=== PATIENT | male | born 1960 | race Caucasian/White ===

== ENCOUNTER 2022-06-12 11:39 | Emergency (ER) | payer MEDICAID, OTHER ==
[~2022-06-12] VITALS: Ht 175.3 cm; Wt 80.3 kg
[2022-06-12 12:34] LABS: Basophils # (auto) 0 10 ^3/uL (0-0.2); Basophils % (auto) 0.4 % (0.0-2.0); Eosinophils # (auto) 0.2 10 ^3/uL (0-0.8); Eosinophils % (auto) 2.4 % (0.0-7.0); Hematocrit 46.6 % (41.0-53.0); Hemoglobin 16.1 g/dL (13.5-17.5); Lymphocytes # (auto) 1.9 10 ^3/uL (0.4-5.4); Lymphocytes % (auto) 20.1 % (10.0-50.0); Mean Corpuscular Hemoglobin 31.8 pg (28.0-32.0); Mean Corpuscular Hgb Conc. 34.4 g/dL (32.0-36.0); Mean Corpuscular Volume 92.5 fL (80.0-100.0); Monocytes # (auto) 0.6 10 ^3/uL (0-1.3); Monocytes % (auto) 6.5 % (0.0-12.0); Neutrophils # (auto) 6.7 10 ^3/uL (1.6-8.6); Neutrophils % (auto) 70.6 % (37.0-80.0); Nucleated Red Blood Cells % 0.1 %; Red Blood Cells 5.04 10^6/uL (4.5-5.90); White Blood Cell 9.5 10^3/uL (4.4-10.8)
[2022-06-12 12:51] LABS: BUN/Creatinine Ratio 11.8; Calcium 9.4 mg/dL (8.5-10.1); Magnesium 2.1 mg/dL (1.6-2.6); Potassium 4.8 mmol/L (3.5-5.1)
[2022-06-12 12:54] LABS: Bilirubin, Total 0.4 mg/dL (0.2-1.0); Total Protein 6.9 g/dL (6.4-8.2)
[2022-06-12] MEDS ORDERED: HYDROcodone-ACET 5/325MG TAB PO ONE (13:30)
[2022-06-12] MEDS ORDERED: HYDR1TAB97 PO (15:41)
[2022-06-12 16:07] VITALS: BP 116/68
== END 2022-06-12 16:08 | disposition home or self-care (01) ==
LOC: ER 11:39
DX: S22.31XA Fracture of one rib, right side, initial encounter for closed fracture (principal); Z88.5 Allergy status to narcotic agent; W11.XXXA Fall on and from ladder, initial encounter; Y93.89 Activity, other specified; Y92.89 Other specified places as the place of occurrence of the external cause; Y99.8 Other external cause status
CPT/HCPCS: 36415; 71101; 71260; 74177; 80053; 83735; 84484; 85025; 93005; 99285; Q9967

== ENCOUNTER 2023-03-04 22:08 | Emergency (ER) | payer MEDICAID ==
[~2023-03-04] VITALS: Ht 175.3 cm; Wt 81.8 kg
[~2023-03-04 22:08] MED LIST: HYDR1TAB97 PO
[2023-03-04] MEDS ORDERED: LIDOCAINE 2% JELLY 11ml (GLYDO) ONE (22:22)
[2023-03-04] MEDS ORDERED: LIDOCAINE 2% JELLY 11ml (GLYDO) UR ONE (22:45)
[2023-03-05 00:19] LABS: Urine Bacteria NONE SEEN /hpf (None Seen); Urine Blood Negative /uL (Negative); Urine Clarity Clear (Clear); Urine Color Colorless (Yellow); Urine Protein, UAD Negative (Negative); Urine Urobilinogen Normal (Negative); Urine WBC 1 /hpf (0 - 3)
[2023-03-05 06:30] VITALS: BP 129/73; PULSE 91; RESP 20; TEMP 98.2; O2SAT 97
[2023-03-05] MEDS ORDERED: TAMS-35 PO (06:39)
== END 2023-03-05 07:02 | disposition home or self-care (01) ==
LOC: ER 22:15
DX: R33.9 Retention of urine, unspecified (principal); K59.00 Constipation, unspecified; Z90.89 Acquired absence of other organs; Z79.899 Other long term (current) drug therapy; Z88.5 Allergy status to narcotic agent
CPT/HCPCS: 51702; 74176; 81001

== ENCOUNTER → 2023-03-14 | Outpatient (CLI) | payer MEDICAID ==
[~2023-03-14] MED LIST changes: +TAMS-35 PO
[2023-03-14 14:29] LABS: Chloride 102 mmol/L (98-107); Potassium 4.6 mmol/L (3.5-5.1); Sodium 135 mmol/L (136-145)
[2023-03-14 14:30] LABS: Anion Gap 3 (5-15); Calcium 9.7 mg/dL (8.5-10.1); Carbon Dioxide 30 mmol/L (20-30)
[2023-03-14 14:35] LABS: Blood Urea Nitrogen 10 mg/dL (9-23); Glucose 85 mg/dL (74-106)
== END | disposition home or self-care (01) ==
LOC: LAB 13:04
PROVIDERS: ATTEND Urology
DX: R33.9 Retention of urine, unspecified (principal)
CPT/HCPCS: 36415; 80048; 84153

== ENCOUNTER → 2023-03-15 | Outpatient (CLI) | payer MEDICAID | END | disposition home or self-care (01) | LOC: Rad HDHVI 08:03 | PROVIDERS: ATTEND Internal Medicine Cardiovascular Disease | DX: R07.9 Chest pain, unspecified (principal); R06.02 Shortness of breath | CPT/HCPCS: 93306 ==

== ENCOUNTER → 2023-04-01 | Outpatient (CLI) | payer MEDICAID ==
[~2023-04-01] VITALS: Ht 175.3 cm; Wt 78.5 kg
[~2023-04-01] MED LIST changes: +ADENOSINE 66 MG in GIVE UN-DILUTED 0 ML IV ONE; +ADENOSINE 90 MG/30 ML INJ IV ONE; +ATOR20TA PO; +OXY5T PO
== END | disposition home or self-care (01) ==
LOC: Rad HDHVI 08:08
PROVIDERS: ATTEND Internal Medicine Cardiovascular Disease
DX: R07.9 Chest pain, unspecified (principal); R06.09 Other forms of dyspnea; E78.2 Mixed hyperlipidemia; Z82.49 Family history of ischemic heart disease and other diseases of the circulatory system
CPT/HCPCS: 78452; 93005; 96374; 96375; A9500; J0153

== ENCOUNTER 2023-04-22 14:26 | Emergency (ER) | payer MEDICAID ==
[~2023-04-22] VITALS: Ht 175.3 cm; Wt 82.0 kg
[~2023-04-22 14:26] MED LIST changes: -ADENOSINE 66 MG in GIVE UN-DILUTED 0 ML IV ONE; -ADENOSINE 90 MG/30 ML INJ IV ONE; -ATOR20TA PO; -OXY5T PO
[2023-04-22 15:17] LABS: Basophils # (auto) 0.1 10 ^3/uL (0-0.2); Basophils % (auto) 0.8 % (0.0-2.0); Eosinophils # (auto) 0.2 10 ^3/uL (0-0.8); Eosinophils % (auto) 2.4 % (0.0-7.0); Hemoglobin 15.9 g/dL (13.5-17.5); Lymphocytes # (auto) 2.2 10 ^3/uL (0.4-5.4); Lymphocytes % (auto) 30.9 % (10.0-50.0); Mean Corpuscular Hemoglobin 31.1 pg (28.0-32.0); Mean Corpuscular Volume 91.7 fL (80.0-100.0); Monocytes # (auto) 0.5 10 ^3/uL (0-1.3); Monocytes % (auto) 7.2 % (0.0-12.0); Neutrophils # (auto) 4.1 10 ^3/uL (1.6-8.6); Neutrophils % (auto) 58.7 % (37.0-80.0); Nucleated Red Blood Cells % 0.1 %; Red Blood Cells 5.12 10^6/uL (4.5-5.90); Red Cell Distribution Width 12.7 % (11.8-14.3)
[2023-04-22 15:39] LABS: Alanine Aminotransferase 74 U/L (7-40); Albumin 4.7 g/dL (3.2-4.8); Alkaline Phosphatase 56 U/L (46-116); Anion Gap 3 (5-15); Aspartate Aminotransferase 32 U/L (13-40); BUN/Creatinine Ratio 8.5 (10.0-20.0); Bilirubin, Total 0.5 mg/dL (0.2-1.0); Blood Urea Nitrogen 10 mg/dL (9-23); Calcium 9.6 mg/dL (8.7-10.4); Carbon Dioxide 30 mmol/L (20-30); Chloride 107 mmol/L (98-107); Glucose 94 mg/dL (74-106); Potassium 4.5 mmol/L (3.5-5.1); Sodium 140 mmol/L (136-145); Total Protein 7.2 g/dL (5.7-8.2)
[2023-04-22 16:18] VITALS: BP 126/86; PULSE 82; RESP 16; TEMP 97.7; O2SAT 98
[2023-04-23] MEDS ORDERED: ATOR20TA PO (15:48)
[2023-04-23] MEDS ORDERED: OXY5T PO (15:48)
== END 2023-04-22 16:21 | disposition home or self-care (01) ==
LOC: ER 14:26
DX: R79.1 Abnormal coagulation profile (principal); Z90.89 Acquired absence of other organs; Z79.899 Other long term (current) drug therapy; Z88.5 Allergy status to narcotic agent
CPT/HCPCS: 36415; 80053; 85025

== ENCOUNTER 2023-04-25 06:40 | Day surgery (SDC) | payer MEDICAID ==
[2023-04-23 13:12] LABS: Urine Bacteria NONE SEEN /hpf (None Seen); Urine Blood Negative /uL (Negative); Urine Clarity Clear (Clear); Urine Color Yellow (Yellow); Urine Mucus FEW (None Seen); Urine Protein, UAD Negative (Negative); Urine Specific Gravity 1.019 (1.001-1.035); Urine Urobilinogen Normal (Negative); Urine WBC 5 /hpf (0 - 3); Urine pH 6.5 (5.0-8.0)
[2023-04-23 13:47] LABS: INR 0.98 (0.9-1.15); Partial Thromboplastin Time 27.7 SEC (24.5-34.5); Prothrombin Time 10.3 sec (9.3-11.8)
[2023-04-23 13:48] LABS: Alanine Aminotransferase 76 U/L (7-40); Albumin 4.7 g/dL (3.2-4.8); Alkaline Phosphatase 57 U/L (46-116); Anion Gap 8 (5-15); Aspartate Aminotransferase 36 U/L (13-40); Basophils # (auto) 0 10 ^3/uL (0-0.2); Basophils % (auto) 0.4 % (0.0-2.0); Bilirubin, Total 0.6 mg/dL (0.2-1.0); Blood Urea Nitrogen 8 mg/dL (9-23); Calcium 9.9 mg/dL (8.5-10.1); Carbon Dioxide 28 mmol/L (20-30); Chloride 104 mmol/L (98-107); Eosinophils # (auto) 0.2 10 ^3/uL (0-0.8); Glucose 93 mg/dL (74-106); Hemoglobin 16.2 g/dL (13.5-17.5); Lymphocytes % (auto) 33.6 % (10.0-50.0); Mean Corpuscular Hemoglobin 31.5 pg (28.0-32.0); Mean Corpuscular Hgb Conc. 34.4 g/dL (32.0-36.0); Mean Corpuscular Volume 91.6 fL (80.0-100.0); Monocytes # (auto) 0.4 10 ^3/uL (0-1.3); Monocytes % (auto) 6.2 % (0.0-12.0); Neutrophils # (auto) 3.3 10 ^3/uL (1.6-8.6); Neutrophils % (auto) 56.8 % (37.0-80.0); Potassium 4.1 mmol/L (3.5-5.1); Red Blood Cells 5.13 10^6/uL (4.5-5.90); Red Cell Distribution Width 12.4 % (11.8-14.3); Sodium 140 mmol/L (136-145); Total Protein 7.3 g/dL (5.7-8.2); White Blood Cell 5.8 10^3/uL (4.4-10.8)
[~2023-04-25] VITALS: Ht 175.3 cm; Wt 81.6 kg
[~2023-04-25 06:40] MED LIST changes: +ATOR20TA PO; -HYDR1TAB97 PO; +OXY5T PO
[2023-04-25] MEDS ORDERED: ONDANSETRON HCL 4 MG/2 ML VIAL ONE (07:50)
[2023-04-25] MEDS ORDERED: PROPOFOL 10 MG/ML 20 ML IV ONE (07:50)
[2023-04-25] MEDS ORDERED: MIDAZOLAM HCL 2MG/2ML 2ml VIAL (1mg/ml) ONE (07:50)
[2023-04-25] MEDS ORDERED: fentaNYL CITRATE 100 MCG/2 ML VL ONE (07:50)
[2023-04-25] MEDS ORDERED: SODIUM CHLORIDE LOCK 10 ML ONE (07:50)
[2023-04-25] MEDS ORDERED: CIPROFLOXACIN 400MG/200ML 200 ML IV ONE (07:56)
[2023-04-25] MEDS ORDERED: MORPHINE SULFATE INJ 2 MG/ml SYRG IV PRN (08:30)
[2023-04-25] MEDS ORDERED: METOCLOPRAMIDE HCL 5MG/ml INJ 2ml VIAL IV PRN (08:30)
[2023-04-25] MEDS ORDERED: HYDROmorphone HCL 2 MG/ML VL/or syr IV PRN ×2 (08:30)
[2023-04-25 08:52] VITALS: PULSE 76; RESP 13; TEMP 98.1; O2SAT 97
[2023-04-25 09:45] VITALS: BP 109/69; PULSE 78; RESP 14; O2SAT 98
== END 2023-04-25 09:50 | disposition home or self-care (01) ==
LOC: SUR 06:40
PROVIDERS: ATTEND Urology
DX: N35.819 Other urethral stricture, male, unspecified site (principal); N40.1 Benign prostatic hyperplasia with lower urinary tract symptoms; R33.8 Other retention of urine; R39.15 Urgency of urination; R35.0 Frequency of micturition
CPT/HCPCS: 36415; 52281; 80053; 81001; 85025; 85610; 85730; 87086; J0744; J2250; J2405; J2704; J3010; J7030

== ENCOUNTER → 2023-05-21 | Outpatient (CLI) | payer MEDICAID ==
[~2023-05-21] MED LIST changes: +ATOR10TA PO; +CARV6.2551 PO; +GABA-1308 PO
[2023-05-21 14:25] VITALS: BP 104/66; PULSE 72; RESP 16; O2SAT 95
[2023-05-21 15:00] VITALS: BP 104/59; PULSE 70; RESP 16; O2SAT 95
== END | disposition home or self-care (01) ==
LOC: CHF HDHVI 14:06
PROVIDERS: ATTEND Internal Medicine Cardiovascular Disease
DX: Z01.818 Encounter for other preprocedural examination (principal); I47.10 Supraventricular tachycardia, unspecified
CPT/HCPCS: 93005; G0463

== ENCOUNTER 2023-09-03 11:45 | Inpatient (IN) | payer MEDICAID ==
[~2023-09-03] VITALS: Ht 175.3 cm; Wt 86.5 kg
[~2023-09-03 11:45] MED LIST changes: +ACET500T58 PO; -ATOR20TA PO; -OXY5T PO
[2023-09-03 13:19] LABS: Basophils # (auto) 0 10 ^3/uL (0-0.2); Basophils % (auto) 0.2 % (0.0-2.0); Eosinophils # (auto) 0.2 10 ^3/uL (0-0.8); Eosinophils % (auto) 2.1 % (0.0-7.0); Hematocrit 46.2 % (41.0-53.0); Hemoglobin 15.4 g/dL (13.5-17.5); Lymphocytes # (auto) 1.1 10 ^3/uL (0.4-5.4); Lymphocytes % (auto) 13.4 % (10.0-50.0); Mean Corpuscular Hemoglobin 30.9 pg (28.0-32.0); Mean Corpuscular Hgb Conc. 33.4 g/dL (32.0-36.0); Mean Corpuscular Volume 92.5 fL (80.0-100.0); Monocytes # (auto) 0.4 10 ^3/uL (0-1.3); Monocytes % (auto) 5.3 % (0.0-12.0); Neutrophils # (auto) 6.5 10 ^3/uL (1.6-8.6); Red Blood Cells 4.99 10^6/uL (4.5-5.90); Red Cell Distribution Width 13.2 % (11.8-14.3); White Blood Cell 8.2 10^3/uL (4.4-10.8)
[2023-09-03 13:38] LABS: Alanine Aminotransferase 64 U/L (7-40); Albumin 4.4 g/dL (3.2-4.8); Alkaline Phosphatase 57 U/L (46-116); Anion Gap 4 (5-15); Aspartate Aminotransferase 31 U/L (13-40); BUN/Creatinine Ratio 8.4 (10.0-20.0); Bilirubin, Total 0.5 mg/dL (0.2-1.0); Blood Urea Nitrogen 9 mg/dL (9-23); Carbon Dioxide 28 mmol/L (20-30); Chloride 106 mmol/L (98-107); Glucose 96 mg/dL (74-106); Potassium 4.6 mmol/L (3.5-5.1); Sodium 138 mmol/L (136-145); Total Protein 6.8 g/dL (5.7-8.2)
[2023-09-03] MEDS ORDERED: MORPHINE SULFATE INJ 2 MG/ml SYRG IV PRN (16:00)
[2023-09-03] MEDS ORDERED: NITROGLYCERIN 0.4 MG SL TAB SL PRN (16:00)
[2023-09-03] MEDS ORDERED: ACETAMINOPHEN 325 MG TAB PO PRN (16:00)
[2023-09-03] MEDS ORDERED: DOCUSATE SOD 100 MG CAP PO PRN (16:00)
[2023-09-03] MEDS ORDERED: ONDANSETRON HCL 4 MG/2 ML VIAL IV PRN (16:00)
[2023-09-03] MEDS ORDERED: CLOP75TA70 PO (16:25)
[2023-09-03] MEDS ORDERED: GAB100C PO (16:25)
[2023-09-03] MEDS: SODIUM CHLORIDE 0.9% 1,000 ML IV ONE (21:12)
[2023-09-03] MEDS: SODIUM CHLOR 0.9% PF (SALINE LOCK) 10ML VIAL/SYR IV SCH (22:20)
[2023-09-03 23:30] VITALS: PULSE 95; RESP 18; O2SAT 95
[2023-09-04] VITALS (9 sets, daily range): BP systolic 99–109; BP diastolic 47–69; PULSE 65–76; RESP 17–20; TEMP 97.4–98.3; O2SAT 95–99
[2023-09-04] MEDS: ATORVASTATIN 20 MG TAB PO SCH (00:36)
[2023-09-04] MEDS: CARVEDILOL 3.125 MG TAB PO SCH (00:37)
[2023-09-04] MEDS ORDERED: ASPI1TAB20 PO (00:38)
[2023-09-04 07:33] LABS: Basophils # (auto) 0 10 ^3/uL (0-0.2); Basophils % (auto) 0.2 % (0.0-2.0); Eosinophils # (auto) 0.2 10 ^3/uL (0-0.8); Eosinophils % (auto) 3.3 % (0.0-7.0); Hematocrit 43.5 % (41.0-53.0); Hemoglobin 14.9 g/dL (13.5-17.5); Lymphocytes # (auto) 1.9 10 ^3/uL (0.4-5.4); Lymphocytes % (auto) 29.6 % (10.0-50.0); Mean Corpuscular Hemoglobin 31.5 pg (28.0-32.0); Mean Corpuscular Hgb Conc. 34.4 g/dL (32.0-36.0); Mean Corpuscular Volume 91.5 fL (80.0-100.0); Monocytes # (auto) 0.5 10 ^3/uL (0-1.3); Monocytes % (auto) 7.5 % (0.0-12.0); Neutrophils # (auto) 3.8 10 ^3/uL (1.6-8.6); Neutrophils % (auto) 59.4 % (37.0-80.0); Red Blood Cells 4.75 10^6/uL (4.5-5.90); Red Cell Distribution Width 13.1 % (11.8-14.3); White Blood Cell 6.3 10^3/uL (4.4-10.8)
[2023-09-04 07:44] LABS: Alanine Aminotransferase 61 U/L (7-40); Albumin 4.1 g/dL (3.2-4.8); Alkaline Phosphatase 54 U/L (46-116); Anion Gap 5 (5-15); Aspartate Aminotransferase 30 U/L (13-40); BUN/Creatinine Ratio 7.8 (10.0-20.0); Blood Urea Nitrogen 8 mg/dL (9-23); Calcium 9.2 mg/dL (8.5-10.1); Carbon Dioxide 27 mmol/L (20-30); Chloride 108 mmol/L (98-107); Glucose 92 mg/dL (74-106); Sodium 140 mmol/L (136-145)
[2023-09-04 07:45] LABS: Total Protein 6.4 g/dL (5.7-8.2)
[2023-09-04 07:46] LABS: Bilirubin, Total 0.6 mg/dL (0.2-1.0)
[2023-09-04] MEDS: TAMSULOSIN HYDROCHLORIDE 0.4 MG CAP PO SCH (09:36)
[2023-09-04] MEDS: CLOPIDOGREL BISULFATE 75 MG TAB PO SCH (09:36)
[2023-09-04] MEDS: GABAPENTIN 100 MG CAP PO SCH (09:36)
[2023-09-04] MEDS: FLUDROCORTISONE ACETATE 0.1 MG TAB PO SCH (21:19)
[2023-09-04] MEDS: HYDROcodone-ACET 5/325MG TAB PO PRN (21:27)
[2023-09-05 01:00] VITALS: BP 100/53; PULSE 68; RESP 18; TEMP 98.3; O2SAT 95
[2023-09-05 05:00] VITALS: BP 103/53; PULSE 63; RESP 17; TEMP 98.1; O2SAT 94
[2023-09-05 08:00] VITALS: PULSE 61
[2023-09-05 08:17] VITALS: BP 107/55; PULSE 64; RESP 19; TEMP 97.3; O2SAT 98
[2023-09-05] MEDS ORDERED: FLU01T PO (11:10)
[2023-09-05 12:17] VITALS: BP 108/50; PULSE 66; RESP 18; TEMP 97.8; O2SAT 95
== END 2023-09-05 14:16 | disposition home or self-care (01) | DRG 422 ==
LOC: EDSEX 11:45 → ER 11:45 → EDBD 11:45 → TELE 16:24 → TELE-WESTW 22:53
PROVIDERS: ADMIT Nurse Practitioner Family; ATTEND Internal Medicine Geriatric Medicine
DX: E86.0 Dehydration (principal); I11.0 Hypertensive heart disease with heart failure; I50.22 Chronic systolic (congestive) heart failure; I95.9 Hypotension, unspecified; R55 Syncope and collapse; N40.0 Benign prostatic hyperplasia without lower urinary tract symptoms; Z79.52 Long term (current) use of systemic steroids; Z85.828 Personal history of other malignant neoplasm of skin; Z88.5 Allergy status to narcotic agent; Z88.8 Allergy status to other drugs, medicaments and biological substances; Z79.899 Other long term (current) drug therapy
CPT/HCPCS: 36415; 70450; 71045; 80053; 82962; 83605; 83880; 84484; 85025; 85379; 87040; 93005; 96360; G0378

== ENCOUNTER 2023-09-17 08:40 | Day surgery (SDC) | payer MEDICAID ==
[2023-09-12 12:08] LABS: INR 1.04 (0.9-1.15); Partial Thromboplastin Time 27.1 SEC (24.5-34.5)
[2023-09-12 12:11] LABS: Alanine Aminotransferase 57 U/L (7-40); Albumin 4.6 g/dL (3.2-4.8); Alkaline Phosphatase 57 U/L (46-116); Anion Gap 7 (5-15); Aspartate Aminotransferase 33 U/L (13-40); BUN/Creatinine Ratio 6.1 (10.0-20.0); Bilirubin, Total 0.7 mg/dL (0.2-1.0); Blood Urea Nitrogen 7 mg/dL (9-23); Calcium 9.9 mg/dL (8.5-10.1); Carbon Dioxide 27 mmol/L (20-30); Chloride 105 mmol/L (98-107); Glucose 93 mg/dL (74-106); Potassium 5.3 mmol/L (3.5-5.1); Sodium 139 mmol/L (136-145); Total Protein 7.2 g/dL (5.7-8.2)
[2023-09-12 12:12] LABS: Basophils # (auto) 0 10 ^3/uL (0-0.2); Basophils % (auto) 0.3 % (0.0-2.0); Eosinophils # (auto) 0.2 10 ^3/uL (0-0.8); Eosinophils % (auto) 3.4 % (0.0-7.0); Hematocrit 48.5 % (41.0-53.0); Hemoglobin 16.7 g/dL (13.5-17.5); Lymphocytes # (auto) 1.5 10 ^3/uL (0.4-5.4); Lymphocytes % (auto) 32.5 % (10.0-50.0); Mean Corpuscular Hemoglobin 31.5 pg (28.0-32.0); Mean Corpuscular Hgb Conc. 34.5 g/dL (32.0-36.0); Mean Corpuscular Volume 91.2 fL (80.0-100.0); Monocytes # (auto) 0.3 10 ^3/uL (0-1.3); Monocytes % (auto) 7.3 % (0.0-12.0); Neutrophils # (auto) 2.6 10 ^3/uL (1.6-8.6); Neutrophils % (auto) 56.5 % (37.0-80.0); Nucleated Red Blood Cells % 0.3 %; Red Blood Cells 5.32 10^6/uL (4.5-5.90); Red Cell Distribution Width 12.8 % (11.8-14.3); White Blood Cell 4.5 10^3/uL (4.4-10.8)
[2023-09-12 12:23] LABS: Urine Bacteria FEW /hpf (None Seen); Urine Blood TRACE /uL (Negative); Urine Clarity Clear (Clear); Urine Color Light-Yellow (Yellow); Urine Mucus FEW (None Seen); Urine Protein, UAD Negative (Negative); Urine Specific Gravity 1.009 (1.001-1.035); Urine Urobilinogen Normal (Negative); Urine WBC 54 /hpf (0 - 3); Urine pH 6.5 (5.0-9.0)
[~2023-09-17] VITALS: Ht 175.3 cm; Wt 80.7 kg
[~2023-09-17 08:40] MED LIST changes: -ACET500T58 PO; +ASPI1TAB20 PO; +CLOP75TA70 PO; +FLU01T PO; +GAB100C PO; -GABA-1308 PO
[2023-09-17] MEDS ORDERED: SODIUM CHLORIDE LOCK 10 ML ONE (10:49)
[2023-09-17] MEDS ORDERED: LIDOCAINE 1% INJ PF 5ML AMP ONE (10:49)
[2023-09-17] MEDS ORDERED: MEPERIDINE HCL (50 MG/ML) 1 ML VIAL ONE (10:49)
[2023-09-17] MEDS ORDERED: ONDANSETRON HCL 4 MG/2 ML VIAL ONE (10:49)
[2023-09-17] MEDS ORDERED: PROPOFOL 10 MG/ML 20 ML IV ONE (10:49)
[2023-09-17] MEDS ORDERED: MIDAZOLAM HCL 2MG/2ML 2ml VIAL (1mg/ml) ONE (10:49)
[2023-09-17] MEDS ORDERED: fentaNYL CITRATE 100 MCG/2 ML VL ONE (10:49)
[2023-09-17] MEDS ORDERED: LIDOCAINE HCL 2% TOP JELLY 5ML TOP ONE (10:50)
[2023-09-17] MEDS ORDERED: CIPROFLOXACIN 400MG/200ML 200 ML IV ONE (11:06)
[2023-09-17] MEDS ORDERED: METOCLOPRAMIDE HCL 5MG/ml INJ 2ml VIAL IV ONE (11:30)
[2023-09-17] MEDS ORDERED: HYDROmorphone HCL 2 MG/ML VL/or syr IV PRN ×2 (11:30)
[2023-09-17] MEDS ORDERED: MORPHINE SULFATE INJ 2 MG/ml SYRG IV PRN (11:30)
[2023-09-17 12:46] VITALS: TEMP 98.1; O2SAT 96
[2023-09-17] MEDS: KETOROLAC TROMETH 30 MG/ML 1ML VIAL IV ONE (13:43)
[2023-09-17] MEDS ORDERED: ACETAMINOPHEN IV 100 ML IV ONE (13:51)
[2023-09-17] MEDS: ACETAMINOPHEN IV 1000 MG/100ML (10MG/ML) IV ONE (13:55)
[2023-09-17 14:38] VITALS: BP 104/72; PULSE 74; RESP 13; O2SAT 95
== END 2023-09-17 14:49 | disposition home or self-care (01) ==
LOC: SUR 08:40
PROVIDERS: ATTEND Urology
DX: N40.1 Benign prostatic hyperplasia with lower urinary tract symptoms (principal); N21.0 Calculus in bladder; E78.5 Hyperlipidemia, unspecified; N40.0 Benign prostatic hyperplasia without lower urinary tract symptoms; G62.9 Polyneuropathy, unspecified; I95.9 Hypotension, unspecified; F32.A Depression, unspecified; F41.9 Anxiety disorder, unspecified; Z79.82 Long term (current) use of aspirin; Z79.01 Long term (current) use of anticoagulants; Z87.891 Personal history of nicotine dependence; Z82.49 Family history of ischemic heart disease and other diseases of the circulatory system; Z79.899 Other long term (current) drug therapy; Z98.890 Other specified postprocedural states
CPT/HCPCS: 36415; 52441; 52442; 80053; 81001; 82360; 85025; 85610; 85730; 87086; 88300; C1769; J0131; J0744; J1885; J2175; J2250; J2405; J2704; J3010; J7030; L8699

== ENCOUNTER 2024-02-06 20:39 | Inpatient (IN) | payer MEDICAID ==
[~2024-02-06] VITALS: Ht 175.3 cm; Wt 182.6 kg
[2024-02-06 21:51] VITALS: PULSE 69; RESP 18; O2SAT 97
[2024-02-07 00:04] LABS: Basophils # (auto) 0 10 ^3/uL (0-0.2); Eosinophils # (auto) 0 10 ^3/uL (0-0.8); Eosinophils % (auto) 0.3 % (0.0-7.0); Hematocrit 47.8 % (41.0-53.0); Hemoglobin 16.7 g/dL (13.5-17.5); Lymphocytes # (auto) 1.5 10 ^3/uL (0.4-5.4); Lymphocytes % (auto) 9.8 % (10.0-50.0); Mean Corpuscular Hemoglobin 31.5 pg (28.0-32.0); Mean Corpuscular Hgb Conc. 34.9 g/dL (32.0-36.0); Mean Corpuscular Volume 90.2 fL (80.0-100.0); Monocytes # (auto) 0.8 10 ^3/uL (0-1.3); Monocytes % (auto) 5.2 % (0.0-12.0); Neutrophils # (auto) 13.1 10 ^3/uL (1.6-8.6); Neutrophils % (auto) 84.7 % (37.0-80.0); Platelet Count (auto) 292 10^3/uL (140-450); Red Cell Distribution Width 13.3 % (11.8-14.3); White Blood Cell 15.5 10^3/uL (4.4-10.8)
[2024-02-07 00:11] LABS: Alanine Aminotransferase 55 U/L (7-40); Albumin 4.6 g/dL (3.2-4.8); Alkaline Phosphatase 64 U/L (46-116); Anion Gap 10 (5-15); Aspartate Aminotransferase 24 U/L (13-40); BUN/Creatinine Ratio 8.9 (10.0-20.0); Bilirubin, Total 0.7 mg/dL (0.2-1.0); Blood Urea Nitrogen 10 mg/dL (9-23); Carbon Dioxide 24 mmol/L (20-30); Chloride 104 mmol/L (98-107); Glucose 127 mg/dL (74-106); Lipase 45 U/L (12-53); Potassium 3.9 mmol/L (3.5-5.1); Sodium 138 mmol/L (136-145); Total Protein 7.3 g/dL (5.7-8.2)
[2024-02-07] MEDS: LIDOCAINE 2% JELLY 11ml (GLYDO) UR ONE (00:15)
[2024-02-07 00:27] LABS: Lactic Acid w/Reflex 3.2 mmol/L (0.4-2.0)
[2024-02-07] MEDS: IOHEXOL 300 MG/ML 100ML BOTTLE IJ ONE (00:44)
[2024-02-07 01:05] LABS: Urine Bacteria None Seen /hpf (None Seen)
[2024-02-07 01:13] LABS: Urine Blood Negative /uL (Negative); Urine Clarity Clear (Clear); Urine Color Light-Yellow (Yellow); Urine Protein, UAD Negative (Negative); Urine Specific Gravity 1.012 (1.001-1.035); Urine Urobilinogen Normal (Negative); Urine WBC 1 /hpf (0 - 3); Urine pH 6.5 (5.0-9.0)
[2024-02-07] MEDS: ONDANSETRON HCL 4 MG/2 ML VIAL IV ONE (03:07)
[2024-02-07] MEDS: MORPHINE SULFATE 4 MG/ML SYR/VIAL IV ONE (03:07)
[2024-02-07] MEDS: SODIUM CHLORIDE 0.9% 1,000 ML IV ONE (03:07)
[2024-02-07] MEDS ORDERED: NITROGLYCERIN 0.4 MG SL TAB SL PRN (11:30)
[2024-02-07] MEDS ORDERED: MORPHINE SULFATE INJ 2 MG/ml SYRG IV PRN (11:30)
[2024-02-07] MEDS ORDERED: ONDANSETRON HCL 4 MG/2 ML VIAL IV PRN (11:30)
[2024-02-07] MEDS ORDERED: HYDROcodone-ACET 5/325MG TAB PO PRN (11:30)
[2024-02-07 11:33] LABS: Basophils # (auto) 0 10 ^3/uL (0-0.2); Basophils % (auto) 0.1 % (0.0-2.0); Eosinophils # (auto) 0.1 10 ^3/uL (0-0.8); Eosinophils % (auto) 0.7 % (0.0-7.0); Hematocrit 42.2 % (41.0-53.0); Hemoglobin 14.8 g/dL (13.5-17.5); Lymphocytes % (auto) 10.7 % (10.0-50.0); Mean Corpuscular Hemoglobin 31.9 pg (28.0-32.0); Mean Corpuscular Hgb Conc. 35.1 g/dL (32.0-36.0); Mean Corpuscular Volume 90.7 fL (80.0-100.0); Monocytes # (auto) 0.7 10 ^3/uL (0-1.3); Neutrophils # (auto) 7.7 10 ^3/uL (1.6-8.6); Neutrophils % (auto) 81.5 % (37.0-80.0); Platelet Count (auto) 259 10^3/uL (140-450); Red Blood Cells 4.65 10^6/uL (4.5-5.90); Red Cell Distribution Width 13.4 % (11.8-14.3); White Blood Cell 9.4 10^3/uL (4.4-10.8)
[2024-02-07 11:48] LABS: Alanine Aminotransferase 43 U/L (7-40); Albumin 4.1 g/dL (3.2-4.8); Alkaline Phosphatase 63 U/L (46-116); Aspartate Aminotransferase 14 U/L (13-40); BUN/Creatinine Ratio 9.3 (10.0-20.0); Bilirubin, Total 0.8 mg/dL (0.2-1.0); Blood Urea Nitrogen 10 mg/dL (9-23); Calcium 9.4 mg/dL (8.7-10.4); Chloride 105 mmol/L (98-107); Glucose 109 mg/dL (74-106); Potassium 4.5 mmol/L (3.5-5.1); Sodium 137 mmol/L (136-145); Total Protein 6.3 g/dL (5.7-8.2)
[2024-02-07] MEDS: ENOXAPARIN SOD 40 MG/0.4 ML SYRINGE SC ONE (11:52)
[2024-02-07] MEDS: PANTOPRAZOLE 40 MG/10 ML VIAL INJ IV ONE (11:52)
[2024-02-07 11:57] LABS: Lactic Acid w/Reflex 2.2 mmol/L (0.4-2.0)
[2024-02-07 12:09] LABS: Anion Gap 6 (5-15); Carbon Dioxide 26 mmol/L (20-30)
[2024-02-07] MEDS: SODIUM CHLORIDE 0.9% 1,000 ML IV SCH (13:12)
[2024-02-07 14:47] LABS: COVID19 ANTIGEN SOFIA FIA NEGATIVE (NEGATIVE)
[2024-02-07 14:48] LABS: Rapid Influenza A Negative (Negative); Rapid Influenza B Negative (Negative)
[2024-02-07 17:00] VITALS: BP 105/66; PULSE 83; RESP 15; TEMP 98; O2SAT 94
[2024-02-07 20:00] VITALS: PULSE 80; PULSE 82; RESP 18; O2SAT 97
[2024-02-07 21:19] VITALS: BP 116/74; PULSE 91; RESP 18; TEMP 98.8; O2SAT 94
[2024-02-08 01:02] VITALS: BP 106/61; PULSE 90; RESP 18; TEMP 98.6; O2SAT 93
[2024-02-08 04:53] VITALS: BP 101/68; PULSE 78; RESP 19; TEMP 98.2; O2SAT 93
[2024-02-08 08:00] VITALS: PULSE 77
[2024-02-08 09:00] VITALS: BP 108/67; PULSE 72; RESP 20; TEMP 98.3; O2SAT 94
[2024-02-08] MEDS: ENOXAPARIN SOD 40 MG/0.4 ML SYRINGE SC SCH (10:16)
[2024-02-08] MEDS: PANTOPRAZOLE 40 MG/10 ML VIAL INJ IV SCH (10:16)
[2024-02-08 13:00] VITALS: BP 96/59; PULSE 67; RESP 18; TEMP 99; O2SAT 95
[2024-02-08 13:22] VITALS: BP 108/65
== END 2024-02-08 14:32 | disposition home or self-care (01) | DRG 501 ==
LOC: ER 20:39 → EDBD 20:39 → TELE 02-07 11:23 → TELE-WESTW 02-07 13:11
PROVIDERS: ADMIT Internal Medicine; ATTEND Emergency Medicine
DX: N40.1 Benign prostatic hyperplasia with lower urinary tract symptoms (principal); E87.20 Acidosis, unspecified; I50.22 Chronic systolic (congestive) heart failure; I11.0 Hypertensive heart disease with heart failure; R33.8 Other retention of urine; K59.09 Other constipation; N32.89 Other specified disorders of bladder; Z20.822 Contact with and (suspected) exposure to COVID-19; K76.9 Liver disease, unspecified; Z88.5 Allergy status to narcotic agent; Z91.09 Other allergy status, other than to drugs and biological substances; Z79.899 Other long term (current) drug therapy; Z79.82 Long term (current) use of aspirin; Z87.442 Personal history of urinary calculi; Z82.49 Family history of ischemic heart disease and other diseases of the circulatory system; Z83.49 Family history of other endocrine, nutritional and metabolic diseases
CPT/HCPCS: 36415; 74177; 80053; 81001; 83605; 83690; 83880; 84154; 84443; 85025; 87040; 87426; 87804; 93005; G0378; J2405; J2470

== ENCOUNTER → 2024-02-27 | Outpatient (CLI) | payer MEDICAID | END | disposition home or self-care (01) | LOC: Rad HDHVI 09:58 | PROVIDERS: ATTEND Internal Medicine Cardiovascular Disease | DX: Z01.818 Encounter for other preprocedural examination (principal); I07.1 Rheumatic tricuspid insufficiency | CPT/HCPCS: 93306 ==

== ENCOUNTER → 2024-03-04 | Outpatient (CLI) | payer MEDICAID ==
[~2024-03-04] VITALS: Ht 175.3 cm; Wt 80.7 kg
[~2024-03-04] MED LIST changes: +ADENOSINE 68 MG in GIVE UN-DILUTED 0 ML IV ONE; +ADENOSINE 90 MG/30 ML INJ IV ONE
== END | disposition home or self-care (01) ==
LOC: Rad HDHVI 10:08
PROVIDERS: ATTEND Internal Medicine Cardiovascular Disease
DX: E78.2 Mixed hyperlipidemia (principal); I11.0 Hypertensive heart disease with heart failure; I50.9 Heart failure, unspecified; Z79.899 Other long term (current) drug therapy
CPT/HCPCS: 78452; 93005; 96374; A9500; J0153; 96375

== ENCOUNTER 2024-04-02 06:23 | Day surgery (SDC) | payer MEDICAID ==
[2024-03-27 12:41] LABS: Urine Bacteria FEW /hpf (None Seen); Urine Blood Negative /uL (Negative); Urine Clarity Clear (Clear); Urine Color Light-Yellow (Yellow); Urine Mucus FEW (None Seen); Urine Protein, UAD TRACE (Negative); Urine Specific Gravity 1.017 (1.001-1.035); Urine Urobilinogen Normal (Negative); Urine WBC 52 /hpf (0 - 3); Urine pH 5.5 (5.0-9.0)
[2024-03-27 12:43] LABS: Basophils # (auto) 0 10 ^3/uL (0-0.2); Basophils % (auto) 0.2 % (0.0-2.0); Eosinophils # (auto) 0.2 10 ^3/uL (0-0.8); Eosinophils % (auto) 3.3 % (0.0-7.0); Hematocrit 46.5 % (41.0-53.0); Hemoglobin 16.1 g/dL (13.5-17.5); Lymphocytes # (auto) 1.6 10 ^3/uL (0.4-5.4); Lymphocytes % (auto) 25.7 % (10.0-50.0); Mean Corpuscular Hemoglobin 31.4 pg (28.0-32.0); Mean Corpuscular Hgb Conc. 34.7 g/dL (32.0-36.0); Mean Corpuscular Volume 90.5 fL (80.0-100.0); Monocytes # (auto) 0.5 10 ^3/uL (0-1.3); Monocytes % (auto) 7.9 % (0.0-12.0); Neutrophils % (auto) 62.9 % (37.0-80.0); Nucleated Red Blood Cells % 0.1 %; Platelet Count (auto) 281 10^3/uL (140-450); Red Blood Cells 5.13 10^6/uL (4.5-5.90); Red Cell Distribution Width 13.2 % (11.8-14.3); White Blood Cell 6.4 10^3/uL (4.4-10.8)
[2024-03-27 12:57] LABS: Alanine Aminotransferase 31 U/L (7-40); Albumin 4.5 g/dL (3.2-4.8); Alkaline Phosphatase 61 U/L (46-116); Anion Gap 4 (5-15); Aspartate Aminotransferase 11 U/L (13-40); BUN/Creatinine Ratio 9.3 (10.0-20.0); Bilirubin, Total 0.5 mg/dL (0.2-1.0); Blood Urea Nitrogen 10 mg/dL (9-23); Calcium 10.3 mg/dL (8.7-10.4); Carbon Dioxide 31 mmol/L (20-31); Chloride 106 mmol/L (98-107); Glucose 84 mg/dL (74-106); Potassium 4.5 mmol/L (3.5-5.1); Sodium 141 mmol/L (136-145); Total Protein 7.2 g/dL (5.7-8.2)
[2024-03-27 12:59] LABS: INR 1.01 (0.9-1.15); Partial Thromboplastin Time 25.6 SEC (24.5-34.5); Prothrombin Time 10.7 sec (9.3-11.8)
[~2024-04-02] VITALS: Ht 175.3 cm; Wt 80.3 kg
[~2024-04-02 06:23] MED LIST changes: -ADENOSINE 68 MG in GIVE UN-DILUTED 0 ML IV ONE; -ADENOSINE 90 MG/30 ML INJ IV ONE; -ASPI1TAB20 PO; -CLOP75TA70 PO; -TAMS-35 PO; +levoFLOXacin 500MG 100 ML IV ONE
[2024-04-02] MEDS ORDERED: PROPOFOL 10 MG/ML 20 ML IV ONE (06:48)
[2024-04-02] MEDS ORDERED: fentaNYL CITRATE 100 MCG/2 ML VL ONE ×2 (06:48→07:52)
[2024-04-02] MEDS ORDERED: ePHEDrine SULFATE 50 MG/ML AMP ONE (07:33)
[2024-04-02] MEDS ORDERED: ONDANSETRON HCL 4 MG/2 ML VIAL ONE (07:35)
[2024-04-02] MEDS ORDERED: DexAMETHasone SOD PHOS 10MG/1ML VIAL INJ ONE (07:35)
[2024-04-02] MEDS ORDERED: SUGAMMADEX 200mg/2ml Vial (100MG/ML) IV ONE (08:09)
[2024-04-02] MEDS ORDERED: ROCURONIUM 10MG/ML 10ML VIAL IV ONE (08:09)
--- NOTE | 2024-04-02 08:21 | DVHDS2 ---
New Physician D'charge PN Admitting Diagnosis Admitting Diagnosis BPH Urinary retention Failed UroLift prostate implant Discharge Diagnosis Same Operations or Procedures GreenLight laser enucleation of the prostate gland with removal of UroLift prostate implants Reason(s) For Hospitalization Surgery Treatment Plan Discharge Condition of Discharge Good Disposition Home Discharge Instructions Diet: Regular Activity: Light activity Activity comment: Catheter care Medications: Given Follow Up Care Follow Up/Referral: Voiding trial in one week Discharge Statement: "Patient was advised to return to the ER or call 911 if any headaches, dizziness, shortness of breath, chest pain, abdominal pain, bleeding, fevers, or worsening of medical condition. Patient was counseled about treatment plan, medications, possible side effects, patientverbalized understanding. All questions were answered to the best of my ability. This discharge took greater then 30 minutes in planning, reviewing documentation, counseling the patient, and discussing with other team members." AMBER ROWE MD Apr 02, 2024 08:21
[2024-04-02 08:26] VITALS: TEMP 97.7; O2SAT 100
[2024-04-02] MEDS ORDERED: ACETAMINOPHEN IV 100 ML IV ONE (08:39)
[2024-04-02] MEDS: ACETAMINOPHEN IV 1000 MG/100ML (10MG/ML) IV PRN (08:42)
[2024-04-02] MEDS ORDERED: ONDANSETRON HCL 4 MG/2 ML VIAL IV ONE (08:45)
[2024-04-02] MEDS ORDERED: MEPERIDINE HCL (25 MG/ML) 1ML VIAL IV PRN (08:45)
[2024-04-02] MEDS: HYDROmorphone HCL 2 MG/ML VL/or syr IV PRN (09:00)
[2024-04-02] MEDS ORDERED: OXYBUTYNIN CHL 5 MG TAB ONE (09:13)
[2024-04-02] MEDS: OXYBUTYNIN CHL 5 MG TAB PO ONE (09:14)
[2024-04-02 10:05] VITALS: BP 135/78; PULSE 80; RESP 16; O2SAT 93
== END 2024-04-02 10:20 | disposition home or self-care (01) ==
LOC: SUR 06:23
PROVIDERS: ATTEND Urology
DX: N40.1 Benign prostatic hyperplasia with lower urinary tract symptoms (principal); N13.8 Other obstructive and reflux uropathy; N21.0 Calculus in bladder; T83.118A Breakdown (mechanical) of other urinary devices and implants, initial encounter; I10 Essential (primary) hypertension; E78.5 Hyperlipidemia, unspecified; Z79.899 Other long term (current) drug therapy; Z96.0 Presence of urogenital implants; Z85.89 Personal history of malignant neoplasm of other organs and systems; Z90.89 Acquired absence of other organs; Z98.890 Other specified postprocedural states; Z88.5 Allergy status to narcotic agent; Y83.9 Surgical procedure, unspecified as the cause of abnormal reaction of the patient, or of later complication, without mention of misadventure at the time of the procedure
CPT/HCPCS: 36415; 52648; 80053; 81001; 82360; 85025; 85610; 85730; 87086; 88300; J1100; J1171; J1956; J2405; J2704; J3010; J0131